=== PATIENT | female | born 1980 | race Caucasian/White ===

== ENCOUNTER → 2020-04-24 | Outpatient (CLI) | payer OTHER ==
[2020-04-24 11:31] LABS: Basophils % (A) 1 %; Eosinophils # (A) 0.2 k/uL (0-0.7); Eosinophils % (A) 2 %; HCT 42.1 % (34.0-46.0); HGB 13.2 gm/dL (11.4-16.0); Lymphocytes # (A) 2.4 k/uL (1.0-4.8); Lymphocytes % (A) 28 %; MCH 30.2 pg (25.0-35.0); MCHC 31.3 g/dL (31.0-37.0); MCV 96.6 fL (80.0-100.0); Mean Platelet Volume 7.8; Monocytes # (A) 0.4 k/uL (0-1.0); Monocytes % (A) 5 %; Neutrophils # (A) 5.3 k/uL (1.3-7.7); Neutrophils % (A) 63 %; Platelet Count 350 k/uL (150-450); RBC 4.36 m/uL (3.80-5.40); RDW 13.8 % (11.5-15.5); WBC 8.4 k/uL (3.8-10.6)
== END | disposition home or self-care (01) ==
LOC: LABPAT 09:50
PROVIDERS: ATTEND Obstetrics & Gynecology Obstetrics
DX: Z01.818 Encounter for other preprocedural examination (principal); N92.1 Excessive and frequent menstruation with irregular cycle; I10 Essential (primary) hypertension
CPT/HCPCS: 36415; 85025; 93005

== ENCOUNTER 2020-05-04 07:18 | Day surgery (SDC) | payer OTHER ==
[2020-04-30 15:57] VITALS: BMI 31.9
[~2020-05-04 07:18] MED LIST: DEXAMETHASONE SOD PHOSPHATE 10 MG/ML 1 ML VIAL IV ONE; HYDROmorphone 0.5 MG/0.5 ML SYRINGE IVP PRN; LACTATED RINGERS 1,000 ML IV SCH; ONDANSETRON 4 MG/2 ML VIAL IVP ONE; Pre Op ABX Message 1 EACH MISC MISCELLANE ONE; SCOPOLAMINE 1.5MG/72HR PATCH TRANSDERM ONE
[2020-05-04] MEDS ORDERED: LIDOCAINE 1% INJ 10MG/ML (20 ML MDV) ONE (08:15)
[2020-05-04] MEDS ORDERED: fentaNYL (PF) 50 MCG/ML 2 ML AMP ONE (08:15)
[2020-05-04] MEDS ORDERED: PROPOFOL 10 MG/ML 20 ML VIAL IV ONE (08:15)
[2020-05-04] MEDS ORDERED: MIDAZOLAM 2 MG/2 ML VIAL ONE (08:15)
[2020-05-04] MEDS ORDERED: KETOROLAC 15 MG/ML 1 ML VIAL ONE (08:15)
--- NOTE | 2020-05-04 08:44 | P.OP ---
Date of Procedure: 05/04/20 Preoperative Diagnosis: Menorrhagia, metrorrhagia Postoperative Diagnosis: Same Procedure(s) Performed: Hysteroscopy, dilation and curettage, endometrial ablation with NovaSure Anesthesia: SAVI THAKUR Surgeon: Juli Zaldivar Estimated Blood Loss (ml): 5 IV fluids (ml): 400 Urine output (ml): 200 Pathology: other (Endometrial curettings) Condition: stable Disposition: PACU Indications for Procedure: Menorrhagia Operative Findings: Proliferative endometrium Description of Procedure: Patient is seen in the preoperative area and informed consent is obtained all questions are answered. Patient wishes to proceed. Patient was taken operating suite where general anesthesia was obtained without difficulty by the anesthesia . She was prepped and draped in the normal sterile fashion in the dorsal lithotomy position. A weighted speculum was placed in the posterior vaginal vault. A red rubber catheter was used to drain the bladder of clear yellow urine. The anterior lip the cervix is visualized and grasped with a single- tooth tenaculum. Endocervical canal was then dilated. The uterus was sounded to 9 cm. Hysteroscope was placed through the cervix and toward the uterus the endometrial cavity was noted to be proliferative in nature. The hysteroscope was removed, and a sharp curettage was performed. The specimen was then sent to pathology for analysis. At this time the NovaSure device was opened and set to the appropriate measurements of 5 cm in length, 3.2 in width power of 88 for a total cycle length of 2 minutes. After cavity assessment was passed, cycle was allowed to complete. Afterwards the NovaSure device was removed and the usual fashion, the single-tooth tenaculum was taken off the anterior lip of the cervix. Some bleeding was noted therefore silver nitrate was used to obtain hemostasis. All instruments removed from the patient's vaginal vault. All counts are noted to be correct 2. Patient was taken to the recovery room awake in stable condition.
[2020-05-04 08:55] VITALS: TEMP 96.9
[2020-05-04 10:02] VITALS: BP 117/82; PULSE 56; RESP 18
== END 2020-05-04 10:20 | disposition home or self-care (01) ==
LOC: OR 07:18
PROVIDERS: ATTEND Obstetrics & Gynecology Obstetrics
DX: N92.0 Excessive and frequent menstruation with regular cycle (principal); I10 Essential (primary) hypertension; Z88.0 Allergy status to penicillin; Z98.51 Tubal ligation status; Z82.49 Family history of ischemic heart disease and other diseases of the circulatory system; Z83.3 Family history of diabetes mellitus; Z80.0 Family history of malignant neoplasm of digestive organs
CPT/HCPCS: 81025; 88305; 58563; J2250; J1100; J2405; J2001; J3010; J1885; J2704